=== PATIENT | male | born 1995 ===

== ENCOUNTER 2017-03-25 05:35 | Emergency (ER) | payer SELFPAY ==
[2017-03-25 05:49] VITALS: BP 129/74
[2017-03-25] MEDS ORDERED: D5NS 0.2% 1,000 ML IV SCH (06:00)
[2017-03-25 06:32] LABS: Hemoglobin 9.9 gm/dl (11.8-15.2); Mean Corpuscular HGB Conc 34 % (32-34); Mean Corpuscular Hemoglobin 29 pg (28-32); Mean Corpuscular Volume 86 fl (84-94); Red Blood Count 3.37 M/mm3 (3.65-5.03); Reticulocyte % 10.08 % (0.78-2.58)
[2017-03-25 06:44] LABS: Red Cell Distribution Width 22.1 % (13.2-15.2)
[2017-03-25 08:34] LABS: Basophils % (Manual) 0 % (0.0-1.8); Blastocytes % (Manual) 0 %; White Blood Count 19.5 K/mm3 (4.5-11.0)
[2017-03-25 08:35] LABS: Anisocytosis 2+; Elliptocytes 1+; Poikilocytosis 2+; Polychromasia Few; Sickle Cells 1+
[2017-03-25 08:36] LABS: Diff Status Complete; Giant Platelets Rare; Platelet Estimate Cons; Schistocytes Rare
[2017-03-25 08:37] LABS: Platelet Count 367 K/mm3 (140-440)
== END 2017-03-25 06:24 | disposition left against medical advice (07) ==
LOC: ED 05:35
DX: M25.50 Pain in unspecified joint (principal); Z53.21 Procedure and treatment not carried out due to patient leaving prior to being seen by health care provider
CPT/HCPCS: 36415; 85007; 85025; 85045